=== PATIENT | male | born 1935 | race Caucasian/White ===

== ENCOUNTER 2018-06-03 19:56 | Emergency (ER) | payer MEDICARE, BC ==
--- NOTE | 2018-06-03 20:40 | RAD ---
RIGHT HAND THREE VIEWS: 06/03/18 HISTORY: Right hand pain and swelling. FINDINGS: Scattered areas of mild to moderate joint space narrowing most pronounced at the first carpometacarpa l joint and the proximal interphalangeal joint of the little finger. Scattered mild osteophytosis. Mo derate osteoarthritic changes at the interphalangeal joint of the thumb. No acute fracture, dislocati on, or aggressive osseous erosions. Multiple small metallic fragments project over the volar tissues at the level of the distal radius and likely represents embedded foreign bodies. Tiny ossific avulsio n posterior to the carpus on the lateral view may represent an old triquetral injury. 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 No acute osseous abnormalities are demonstrated. POS: WINDY
== END 2018-06-03 20:52 | disposition home or self-care (01) ==
LOC: ERS 19:56
DX: M19.041 Primary osteoarthritis, right hand (principal); M25.531 Pain in right wrist; I10 Essential (primary) hypertension; E78.5 Hyperlipidemia, unspecified

== ENCOUNTER 2020-01-02 12:33 | Outpatient (CLI) | payer MEDICARE, BC ==
--- NOTE | 2020-01-02 15:49 | MRI ---
MRI OF THE LUMBAR SINE 01/02/20 PROVIDED CLINICAL HISTORY: Right sciatic nerve pain. FINDINGS: Five lumbar vertebral bodies are assumed. There is slight retrolisthesis of L5 on S1 and slight anter olisthesis of L4 on L5. Vertebral body heights appear preserved. No focal concerning regional marrow signal abnormality is apparent. The conus medullaris is normal in size and terminates at an appropria te level. Bilateral T2 hyperintensities are seen involving the kidneys, statistically cysts but incom pletely characterized on the basis of this study. At L1-2, bilateral facet arthritis without significant central canal or foraminal narrowing. At L2-3, bilateral facet arthritis without significant central canal or foraminal narrowing. At L3-4, there is a broad based disc bulge and bilateral facet arthritis. There is severe central can al stenosis. There is moderate left foraminal narrowing. No significant right foraminal narrowing vielka arent. Conspicuous end plate degenerative changes are seen left of midline. At L4-5, there is disc space narrowing and end plate degenerative change with a broad based disc bulg e and bilateral facet arthritis. There is mild-moderate central canal stenosis with asymmetric efface ment of the right subarticular region and potential for impingement on the traversing right L5 nerve root. There is moderate right and mild left foraminal narrowing. At L5-S1, there is a broad based disc bulge and bilateral facet arthritis. There is no significant ce ntral canal stenosis apparent. There is mild bilateral foraminal narrowing. Disc bulge in each later al region has the potential for mass effect upon the exited S1 nerve roots bilaterally. IMPRESSION: Advanced multilevel lumbar degenerative change producing canal and foraminal narrowing as described. POS: Fannie
== END 2020-01-02 12:34 | disposition home or self-care (01) ==
LOC: BICMRI 12:33
PROVIDERS: ATTEND Orthopaedic Surgery
DX: M54.31 Sciatica, right side (principal); M47.816 Spondylosis without myelopathy or radiculopathy, lumbar region; M48.061 Spinal stenosis, lumbar region without neurogenic claudication; M48.07 Spinal stenosis, lumbosacral region
CPT/HCPCS: 72148

== ENCOUNTER 2020-05-28 17:52 | Emergency (ER) | payer MEDICARE, BC ==
[2020-05-28] MEDS ORDERED: Lidocaine 1% w/Epinephrine 1:100K 20 ML VIAL ONE (18:10)
[2020-05-28] MEDS ORDERED: Bacitracin 1 PK ONE (19:19)
[2020-05-28] MEDS ORDERED: Boostrix 0.5 ML VIAL ONE (19:24)
== END 2020-05-28 19:20 | disposition home or self-care (01) ==
LOC: ERS 17:52
DX: S81.812A Laceration without foreign body, left lower leg, initial encounter (principal); Z23 Encounter for immunization; E78.5 Hyperlipidemia, unspecified; E78.00 Pure hypercholesterolemia, unspecified; I10 Essential (primary) hypertension; W10.9XXA Fall (on) (from) unspecified stairs and steps, initial encounter
CPT/HCPCS: 12004; 90471; 90715

== ENCOUNTER 2020-06-11 08:19 | Emergency (ER) | payer MEDICARE, BC | END 2020-06-11 08:40 | disposition home or self-care (01) | LOC: ERS 08:19 | DX: S81.812D Laceration without foreign body, left lower leg, subsequent encounter (principal); E78.5 Hyperlipidemia, unspecified; E78.00 Pure hypercholesterolemia, unspecified; I10 Essential (primary) hypertension; X58.XXXD Exposure to other specified factors, subsequent encounter | CPT/HCPCS: 99282 ==

== ENCOUNTER 2020-06-17 09:24 | Emergency (ER) | payer MEDICARE, BC | END 2020-06-17 10:10 | disposition home or self-care (01) | LOC: ERS 09:24 | DX: S81.812D Laceration without foreign body, left lower leg, subsequent encounter (principal); Z79.899 Other long term (current) drug therapy; E78.5 Hyperlipidemia, unspecified; E78.00 Pure hypercholesterolemia, unspecified; I10 Essential (primary) hypertension; Z87.891 Personal history of nicotine dependence ==

== ENCOUNTER 2021-02-09 19:28 | Emergency (ER) | payer MEDICARE, BC | END 2021-02-09 20:48 | disposition home or self-care (01) | LOC: ERS 19:28 | DX: I77.810 Thoracic aortic ectasia (principal); J30.2 Other seasonal allergic rhinitis; E78.5 Hyperlipidemia, unspecified; I10 Essential (primary) hypertension; Z87.891 Personal history of nicotine dependence | CPT/HCPCS: 71046 ==

== ENCOUNTER 2021-03-27 | Outpatient (CLI) | payer MEDICARE, BC | END 2021-03-27 13:19 | disposition home or self-care (01) | DX: I77.810 Thoracic aortic ectasia (principal) ==

== ENCOUNTER 2021-08-11 08:34 | Emergency (ER) | payer MEDICARE, BC | END 2021-08-11 11:30 | disposition home or self-care (01) | LOC: ERS 08:34 | DX: I10 Essential (primary) hypertension (principal); E78.5 Hyperlipidemia, unspecified; E78.00 Pure hypercholesterolemia, unspecified; Z87.891 Personal history of nicotine dependence | CPT/HCPCS: 99283 ==

== ENCOUNTER 2022-08-20 14:09 | Emergency (ER) | payer MEDICARE, BC | END 2022-08-20 14:50 | disposition home or self-care (01) | LOC: ERS 14:09 | DX: I10 Essential (primary) hypertension (principal); E78.00 Pure hypercholesterolemia, unspecified; Z79.899 Other long term (current) drug therapy; Z79.82 Long term (current) use of aspirin | CPT/HCPCS: 99282 ==

== ENCOUNTER 2024-05-12 15:26 | Emergency (ER) | payer BC, MEDICARE ==
[2024-05-12] MEDS ORDERED: Boostrix 0.5 ML (Tdap) VIAL (>/=7 yrs of age) ONE (17:54)
== END 2024-05-12 18:20 | disposition home or self-care (01) ==
LOC: ERS 15:26
DX: S01.01XA Laceration without foreign body of scalp, initial encounter (principal); Z23 Encounter for immunization; W01.0XXA Fall on same level from slipping, tripping and stumbling without subsequent striking against object, initial encounter
CPT/HCPCS: 70450; 72125; 90471; 90715